=== PATIENT | male | born 1995 | race Two or more races ===

== ENCOUNTER 2016-09-24 09:55 | Emergency (ER) | payer OTHER ==
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
[2016-09-24 11:05] VITALS: BP 135/95; PULSE 67; RESP 14; TEMP 97.7; O2SAT 96
== END 2016-09-24 11:05 | disposition home or self-care (01) ==
PROC: 0HQGXZZ Repair Left Hand Skin, External Approach (ICD-10-PCS; principal; 2016-09-24)
DX: S61.217A Laceration without foreign body of left little finger without damage to nail, initial encounter (principal); S61.211A Laceration without foreign body of left index finger without damage to nail, initial encounter; W22.8XXA Striking against or struck by other objects, initial encounter; Y99.8 Other external cause status; Y93.89 Activity, other specified